=== PATIENT | female | born 1960 | race Caucasian/White ===

== ENCOUNTER 2020-06-13 19:22 | Emergency (ER) | payer OTHER ==
[2020-06-13] MEDS ORDERED: BENADRYL 50 MG/ML IV ONE (19:33)
[2020-06-13] MEDS ORDERED: Sodium Chloride 0.9% 1000 ML 1,000 ML IV STA (19:33)
[2020-06-13] MEDS ORDERED: Zofran 4 MG/2 ML VIAL IV ONE (19:33)
[2020-06-13] MEDS ORDERED: solu-MEDROL 125 MG IV ONE (19:33)
[2020-06-13] MEDS ORDERED: Pepcid 20 MG VIAL IV ONE ×2 (19:33→19:39)
[2020-06-13] MEDS ORDERED: EPINEPHRINE 1MG/ML AMP IM ONE (19:33)
[2020-06-13] MEDS ORDERED: BENADRYL 50 MG/ML ONE (19:39)
[2020-06-13] MEDS ORDERED: Zofran 4 MG/2 ML VIAL ONE (19:39)
[2020-06-13] MEDS ORDERED: solu-MEDROL 125 MG ONE (19:39)
[2020-06-13] MEDS ORDERED: Sodium Chloride 0.9% 1000 ML 1,000 ML ONE (19:39)
[2020-06-13] MEDS ORDERED: EPINEPHRINE 1MG/ML AMP ONE (19:39)
[2020-06-13 19:48] LABS: BASOPHIL % 0.5 % (0.0-0.4); Basophil (Absolute #) 0.03 (0-0.4); Eosinophil % 2.1 % (0.00-5.0); Eosinophil (Absolute #) 0.12 (0-0.5); Hematocrit 42.3 % (35-47); Hemoglobin 13.6 gm/dl (12.0-16.0); Lymphocyte (Absolute #) 1.52 (1.0-4.6); Lymphocytes % 27.1 % (24.0-44.0); Mean Cell Volume 89.4 fl (78-100); Mean Corpuscular Hemoglobin 28.8 pg (26-32); Mean Corpuscular Hgb Concent. 32.2 g/dl (32-36); Mean Platelet Volume 9.9 fl (7.5-11.0); Monocyte (Absolute #) 0.74 (0.0-1.3); Monocytes % 13.2 % (0.0-12.0); Neutrophil % 57.1 % (36.0-66.0); Platelet Count 232 K/mm3 (150-450); Red Blood Count 4.73 M/mm3 (4.1-5.4); White Blood Count 5.6 K/mm3 (4.0-10.5)
--- NOTE | 2020-06-13 19:50 | ERPHSYRPT ---
- History of Present Illness Time Seen by Provider: 06/13/20 19:24 Source: patient Exam Limitations: no limitations Patient Subjective Stated Complaint: pt states she began having a few small blisters and itchiness around her mouth 3 days ago. today deyvi woke up with swelling around mouth and more blisters that have gotten worse through the day Triage Nursing Assessment: pt alert and oriented, answers questions approp. pt ambulatory with steady gait noted. respirations nonlabored. skin warm and dry. redness, blistering, and swelling noted to pt lips and round her mouth. Physician History: Patient is here with oral swelling. Patient states that she woke up with some mild swelling around her mouth. She states that this gave way to increase swelling throughout the day. Patient also appears to have stomatitis. Inflammation around her mouth. She denies any new medication, new allergies, new facial products, any other new potential irritants. She states this is never happened before. Patient states that she is on several psych medications. Location: oral Quality: swelling Radiation: none Severity: moderate Duration: since this AM Timing: gradual Modifying factors/associated signs and symptoms: none tried Timing/Duration: today Severity: moderate Allergies/Adverse Reactions: No Known Drug Allergies Allergy (Unverified 04/26/14 21:48) Home Medications: Alprazolam [Xanax] 0.5 mg PO TID PRN 04/26/14 [History] Furosemide [Lasix] 0 mg PO BID PRN PRN 04/26/14 [History] Buspirone HCl [Buspar] 15 mg PO BID PRN PRN 06/13/20 [History] Fluoxetine HCl 20 mg [Prozac 20 MG] 20 mg PO DAILY 06/13/20 [History] Promethazine HCl 25 mg [Phenergan 25 mg] 25 mg PO Q8HPRN PRN 06/13/20 [History] Hx Tetanus, Diphtheria Vaccination/Date Given: Yes Hx Influenza Vaccination/Date Given: Yes Hx Pneumococcal Vaccination/Date Given: No Immunizations Up to Date: Yes Travel Risk - International Travel Have you traveled outside of the country in past 3 weeks: No - Coronavirus Screening Are you exhibiting any of the following symptoms?: No Close contact with a COVID-19 positive Pt in past 14-21 Days: No - Vaccine Status Have you recieved a Covid-19 vaccination: No - Review of Systems Constitutional: No Fever, No Chills Eyes: No Symptoms Ears, Nose, & Throat: No Symptoms, Other (Oral swelling) Respiratory: No Cough, No Dyspnea Cardiac: No Chest Pain, No Edema, No Syncope Abdominal/Gastrointestinal: No Abdominal Pain, No Nausea, No Vomiting, No Diarrhea Genitourinary Symptoms: No Dysuria Musculoskeletal: No Back Pain, No Neck Pain Skin: No Rash Neurological: No Dizziness, No Focal Weakness, No Sensory Changes Psychological: No Symptoms Endocrine: No Symptoms All Other Systems: Reviewed and Negative - Past Medical History Pertinent Past Medical History: Yes Neurological History: No Pertinent History Cardiac History: No Pertinent History Respiratory History: No Pertinent History Endocrine Medical History: No Pertinent History Musculoskeletal History: Arthritis GI Medical History: Gallbladder Disease Psycho-Social History: Anxiety Female Reproductive Disorders: Other - Past Surgical History Past Surgical History: Yes Neuro Surgical History: No Pertinent History Cardiac: No Pertinent History Respiratory: No Pertinent History Gastrointestinal: Appendectomy Musculoskeletal: Other Female Surgical History: Hysterectomy, Tubal Ligation Other Surgical History: surgery on right wrist/ has plate and screws in it - Social History Smoking Status: Never smoker Exposure to second hand smoke: No Drug Use: none Patient Lives Alone: No - Nursing Vital Signs Nursing Vital Signs: Initial Vital Signs Temperature 98.1 F 06/13/20 19:31 Pulse Rate 84 06/13/20 19:31 Respiratory Rate 18 06/13/20 19:31 Blood Pressure 166/99 06/13/20 19:31 O2 Sat by Pulse Oximetry 99 06/13/20 19:31 Pain Scale Pain Intensity 3 - Physical Exam General Appearance: no apparent distress, alert Eye Exam: PERRL/EOMI, eyes nml inspection Ears, Nose, Throat Exam: normal ENT inspection, TMs normal, pharynx normal, moist mucous membranes Neck Exam: normal inspection, non-tender, supple, full range of motion Respiratory Exam: normal breath sounds, lungs clear, No respiratory distress Cardiovascular Exam: regular rate/rhythm, normal heart sounds, normal peripheral pulses Gastrointestinal/Abdomen Exam: soft, normal bowel sounds, No tenderness, No mass Back Exam: normal inspection, normal range of motion, No CVA tenderness, No vertebral tenderness Extremity Exam: normal inspection, normal range of motion, pelvis stable Neurologic Exam: alert, oriented x 3, cooperative, normal mood/affect, nml cerebellar function, nml station & gait, sensation nml, No motor deficits Skin Exam: normal color, warm, dry, No rash Lymphatic Exam: No adenopathy SpO2: 99 Comments: 06/13/20 19:49 Patient has oral and lip swelling with stomatitis. Appears to be honey crusted lesions around the mouth. However not entirely consistent with staph infection. They are weeping but they are not vesicles. No obvious tongue swelling. No other obvious airway swelling. 99% here on room air. - Course Nursing assessment & vital signs reviewed: Yes Ordered Tests: Active Orders 24 hr Category Date Time Status Crisis Nurse STAT Care 06/13/20 19:33 Active EKG-ER Only STAT Care 06/13/20 19:33 Active IV Insertion STAT Care 06/13/20 19:33 Active CBC W DIFF Stat Lab 06/13/20 19:35 Completed CMP Stat Lab 06/13/20 19:35 Completed Medication Summary Discontinued Medications Generic Name Dose Route Start Last Admin Trade Name Freq PRN Reason Stop Dose Admin Diphenhydramine HCl 25 mg 06/13/20 19:33 06/13/20 19:46 Benadryl 50 Mg/Ml IV 06/13/20 19:34 25 mg STAT ONE Administration Diphenhydramine HCl Confirm 06/13/20 19:39 Benadryl 50 Mg/Ml Administered 06/13/20 19:40 Dose 50 mg .ROUTE .STK-MED ONE Epinephrine HCl 0.3 mg 06/13/20 19:33 06/13/20 19:45 Epinephrine 1mg/Ml Amp IM 06/13/20 19:34 0.3 mg STAT ONE Administration Epinephrine HCl Confirm 06/13/20 19:39 Epinephrine 1mg/Ml Amp Administered 06/13/20 19:40 Dose 1 mg .ROUTE .STK-MED ONE Famotidine 20 mg 06/13/20 19:33 06/13/20 19:43 Pepcid 20 Mg Vial IV 06/13/20 19:34 20 mg STAT ONE Administration Famotidine Confirm 06/13/20 19:39 Pepcid 20 Mg Vial Administered 06/13/20 19:40 Dose 20 mg IV .STK-MED ONE Sodium Chloride 1,000 mls @ 999 mls/hr 06/13/20 19:33 06/13/20 20:44 Sodium Chloride 0.9% 1000 Ml IV 06/13/20 20:33 Infused .Q1H1M STA Infusion Sodium Chloride Confirm 06/13/20 19:39 Sodium Chloride 0.9% 1000 Ml Administered 06/13/20 19:40 Dose 1,000 mls @ ud .ROUTE .STK-MED ONE Ceftriaxone Sodium/Dextrose 2 g in 50 mls @ 100 mls/hr 06/13/20 20:16 06/13/20 21:22 Rocephin 2 Gm-D5w 50ml Bag IV 06/13/20 20:45 Infused STAT STA Infusion Ceftriaxone Sodium/Dextrose Confirm 06/13/20 20:30 Rocephin 2 Gm-D5w 50ml Bag Administered 06/13/20 20:31 Dose 2 g in 50 mls @ ud IV .STK-MED ONE Methylprednisolone Sodium Succinate 125 mg 06/13/20 19:33 06/13/20 19:44 Solu-Medrol 125 Mg IV 06/13/20 19:34 125 mg STAT ONE Administration Methylprednisolone Sodium Succinate Confirm 06/13/20 19:39 Solu-Medrol 125 Mg Administered 06/13/20 19:40 Dose 125 mg .ROUTE .STK-MED ONE Ondansetron HCl 8 mg 06/13/20 19:33 06/13/20 19:46 Zofran 4 Mg/2 Ml Vial IV 06/13/20 19:34 8 mg STAT ONE Administration Ondansetron HCl Confirm 06/13/20 19:39 Zofran 4 Mg/2 Ml Vial Administered 06/13/20 19:40 Dose 8 mg .ROUTE .STK-MED ONE Lab/Rad Data: Laboratory Result Diagrams 06/13/20 19:35 06/13/20 19:35 Laboratory Results 06/13/20 06/13/20 Range/Units 19:35 19:35 WBC 5.6 (4.0-10.5) K/mm3 RBC 4.73 (4.1-5.4) M/mm3 Hgb 13.6 (12.0-16.0) gm/dl Hct 42.3 (35-47) % MCV 89.4 (78-100) fl MCH 28.8 (26-32) pg MCHC 32.2 (32-36) g/dl RDW 13.0 (11.5-14.0) % Plt Count 232 (150-450) K/mm3 MPV 9.9 (7.5-11.0) fl Gran % 57.1 (36.0-66.0) % Eos # (Auto) 0.12 (0-0.5) Absolute Lymphs (auto) 1.52 (1.0-4.6) Absolute Monos (auto) 0.74 (0.0-1.3) Lymphocytes % 27.1 (24.0-44.0) % Monocytes % 13.2 H (0.0-12.0) % Eosinophils % 2.1 (0.00-5.0) % Basophils % 0.5 (0.0-0.4) % Absolute Granulocytes 3.20 (1.4-6.9) Basophils # 0.03 (0-0.4) Sodium 140 (137-145) mmol/L Potassium 3.4 L (3.5-5.1) mmol/L Chloride 103 (98-107) mmol/L Carbon Dioxide 30 (22-30) mmol/L Anion Gap 11.4 (5-15) MEQ/L BUN 21 H (7-17) mg/dL Creatinine 1.10 H (0.52-1.04) mg/dL Estimated GFR 53.7 ML/MIN Glucose 84 (74-106) mg/dL Calcium 9.1 (8.4-10.2) mg/dL Total Bilirubin 0.20 (0.2-1.3) mg/dL AST 26 (14-36) U/L ALT 20 (0-35) U/L Alkaline Phosphatase 79 (38-126) U/L Serum Total Protein 7.0 (6.3-8.2) g/dL Albumin 4.0 (3.5-5.0) g/dL - Progress Progress: improved Progress Note: 06/13/20 19:50 We will obtain basic labs, epinephrine, Benadryl, Zofran, steroids. Patient will need to be closely monitored for the swelling. 06/13/20 23:08 Patient was observed for 4 hours in the emergency department. Could be a component of impetigo to this. Therefore antibiotics IV were given in the emergency department. We will send patient home with doxycycline, steroid burst, home EpiPen in case patient has recurrent reaction. On reexam swelling looks very much improved. Patient denies being on an RACHEAL inhibitor. Patient will need close follow-up with PCP. Will return here for any new or changing symptoms. Will need a wound/lip recheck tomorrow. Plan of care was discussed with patient and all questions answered. The patient is agreeable to be discharged home and both verbal and printed discharge instructions were provided.The patient agreed to seek outpatient follow up as discussed. The patient was given strict instructions to return to the emergency department for worsening symptoms or any other emergent concerns. The patient verbalized understanding. 06/13/20 23:09 Counseled pt/family regarding: lab results, diagnosis, need for follow-up - Departure Departure Disposition: Home Clinical Impression: Lip swelling, Impetigo Condition: Stable Critical Care Time: No Referrals: RADHA VILLA MD [Primary Care Provider] - Instructions: Cellulitis and Erysipelas (Skin Infections) Prescriptions: Prednisone 10 mg [Deltasone 10 mg] 60 mg PO DAILY 5 Days #100 tablet Epinephrine [Epipen] 0.3 mg IM HS PRN PRN #1 ml PRN Reason: Allergies Doxycycline Hyclate 100 mg [Vibramycin 100 MG] 100 mg PO BID #14 tab
[2020-06-13 19:59] LABS: ANION GAP 11.4 MEQ/L (5-15); BILIRUBIN,TOTAL 0.2 mg/dL (0.2-1.3); Calcium 9.1 mg/dL (8.4-10.2); Creatinine 1 1.1 mg/dL (0.52-1.04); EST GLOMERULAR FILTRATION RATE 53.7 ML/MIN; Potassium 3.4 mmol/L (3.5-5.1)
[2020-06-13] MEDS ORDERED: ROCEPHIN 2 Gm-D5w 50ML BAG** 2 G/50 ML IVPB IV STA (20:16)
[2020-06-13] MEDS ORDERED: ROCEPHIN 2 Gm-D5w 50ML BAG** 2 G/50 ML IVPB IV ONE (20:30)
[2020-06-13 22:17] VITALS: PULSE 82
[2020-06-13 23:23] VITALS: BP 116/59; O2SAT 97
== END 2020-06-13 23:21 | disposition home or self-care (01) ==
LOC: ED 19:22
DX: L01.00 Impetigo, unspecified (principal)
CPT/HCPCS: 36000; 36415; 80053; 85025; 93005; 93041; 96360; 96365; 96372; 96374; 96375; 99285; J0171; J0696; J1200; J2405; J2930